=== PATIENT | male | born 1975 | race Two or more races ===

== ENCOUNTER 2023-07-26 12:06 | Inpatient (IN) | payer OTHER ==
[~2023-07-26] VITALS: Ht 210.8 cm; Wt 101.6 kg
[2023-07-27] MEDS ORDERED: TOPROL XL50 M1 PO (11:40)
[2023-07-27] MEDS ORDERED: LOSARTAN-HCTZ1 EACH PO (11:41)
[2023-07-27] MEDS ORDERED: ZOCOR40 MG PO (11:41)
[2023-07-27] MEDS ORDERED: NORVASC5 MG PO (11:41)
[2023-07-27] MEDS ORDERED: ALLOPURINOL300 MG PO (11:42)
[2023-08-04] MEDS ORDERED: TRAM1TAB98 PO (11:59)
[2023-08-04] MEDS ORDERED: PEPCID AC20 MG PO (11:59)
[2023-08-04] MEDS ORDERED: INTESTINEX680 M1 PO (11:59)
== END 2023-08-04 14:05 | disposition home or self-care (01) | DRG 331 ==
LOC: O/R 08-01 05:19 → SURH 08-01 05:19 → OB/GYN 08-01 11:00 → SURH 08-01 11:45
PROVIDERS: Internal Medicine Geriatric Medicine; ADMIT Surgery; ATTEND Surgery
PROC: 0DBP4ZZ Excision of Rectum, Percutaneous Endoscopic Approach (ICD-10-PCS; 2023-08-01)
PROC: 0DJD8ZZ Inspection of Lower Intestinal Tract, Via Natural or Artificial Opening Endoscopic (ICD-10-PCS; 2023-08-01)
PROC: 0DTN4ZZ Resection of Sigmoid Colon, Percutaneous Endoscopic Approach (ICD-10-PCS; principal; 2023-08-01 11:45)
DX: K57.32 Diverticulitis of large intestine without perforation or abscess without bleeding (principal); R10.32 Left lower quadrant pain; I11.9 Hypertensive heart disease without heart failure; G47.30 Sleep apnea, unspecified; K66.0 Peritoneal adhesions (postprocedural) (postinfection)